=== PATIENT | female | born 1950 | race Two or more races ===

== ENCOUNTER 2019-03-31 08:29 | Emergency (ER) | payer OTHER ==
[~2019-03-31] VITALS: Ht 165.1 cm; Wt 107.0 kg
[2019-03-31] MEDS ORDERED: COZAAR25 MG (08:44)
== END 2019-03-31 10:36 | disposition home or self-care (01) ==
LOC: ER 08:29
DX: S20.461A Insect bite (nonvenomous) of right back wall of thorax, initial encounter (principal); W57.XXXA Bitten or stung by nonvenomous insect and other nonvenomous arthropods, initial encounter; Y93.89 Activity, other specified; Y92.89 Other specified places as the place of occurrence of the external cause; Y99.8 Other external cause status